=== PATIENT | male | born 1995 | race Two or more races ===

== ENCOUNTER 2019-04-01 15:28 | Emergency (ER) | payer SELFPAY ==
[~2019-04-01] VITALS: Ht 162.6 cm; Wt 90.7 kg
[2019-04-01 15:35] VITALS: BP 112/70
[2019-04-01] MEDS ORDERED: ONDANSETRON ODT 4 MG TAB PO ONE (18:15)
== END 2019-04-01 20:30 | disposition home or self-care (01) ==
LOC: ER 15:28 → EDBD 15:28 → ER 20:30
DX: R51 Headache (principal); V80.010A Animal-rider injured by fall from or being thrown from horse in noncollision accident, initial encounter; Y93.89 Activity, other specified; Y99.8 Other external cause status; Y92.89 Other specified places as the place of occurrence of the external cause
CPT/HCPCS: 70450; 72125; 99285; Q0162